=== PATIENT | female | born 1995 | race Caucasian/White ===

== ENCOUNTER 2020-09-08 20:20 | Emergency (ER) | payer BC ==
[~2020-09-08] VITALS: Ht 165.1 cm; Wt 68.0 kg
[2020-09-08 20:20] VITALS: BP_SYST 122
--- NOTE | 2020-09-08 20:20 | NUR ---
PT TO BED 3 FOR EVALUATION. REPORT GIVEN TO RAY BROWNE WHO WILL ASSUME CARE.
--- NOTE | 2020-09-08 20:25 | NUR ---
DR. BRAVO AT BEDSIDE TO ASSESS.
[2020-09-08] MEDS ORDERED: ACETAMINOPHEN 500 MG TABLET PO ONE (20:30)
[2020-09-08] MEDS ORDERED: ACET-2634 PO (20:36)
--- NOTE | 2020-09-08 20:45 | NUR ---
HERE FOR C/O RT LEG PAIN S/P OF CHILD ONE WEEK AGO
[2020-09-08 21:40] VITALS: BP_SYST 126
--- NOTE | 2020-09-08 21:40 | NUR ---
OFF UNIT STEADY Patient given written and verbal discharge instructions and verbalizes understanding. ER MD discussed with patient the results and treatment provided. Patient in stable condition. ID arm band removed. Rx of TYLENOL given. Patient educated on pain management and to follow up with PMD. Pain Scale 2/10 Opportunity for questions provided and answered. Medication side effect fact sheet provided.
== END 2020-09-08 21:40 | disposition home or self-care (01) ==
LOC: SED 20:20
DX: M54.31 Sciatica, right side (principal); M79.651 Pain in right thigh; Z79.899 Other long term (current) drug therapy
CPT/HCPCS: 93971; 99284